=== PATIENT | female | born 1985 | race Two or more races ===

== ENCOUNTER 2022-02-25 13:41 | Emergency (ER) | payer MEDICAID, OTHER ==
[~2022-02-25] VITALS: Ht 157.5 cm; Wt 75.7 kg
[2022-02-25 14:11] VITALS: BP 146/96
== END 2022-02-25 14:41 | disposition home or self-care (01) ==
LOC: ER 13:41
DX: S53.402A Unspecified sprain of left elbow, initial encounter (principal); I10 Essential (primary) hypertension; W01.0XXA Fall on same level from slipping, tripping and stumbling without subsequent striking against object, initial encounter; Y93.89 Activity, other specified; Y92.89 Other specified places as the place of occurrence of the external cause; Y99.8 Other external cause status
CPT/HCPCS: 73080